=== PATIENT | female | born 1985 | race Caucasian/White ===

== ENCOUNTER 2021-04-02 15:53 | Emergency (ER) | payer OTHER ==
[~2021-04-02] VITALS: Ht 144.8 cm; Wt 47.6 kg
[2021-04-02 16:58] LABS: HEMATOCRIT 44.1 % (37.0-47.0); MCH 31.1 pg (26.0-34.0); MCHC 34.1 g/dL (28.0-37.0); MCV 91.3 fL (80.0-100.0); RBC 4.83 mil/uL (4.20-5.00); RDW 12.6 % (10.5-14.5); WBC 8.3 thou/uL (4.0-11.0)
[2021-04-02 17:02] LABS: CALCIUM 9.2 mg/dL (8.5-10.1); CREATININE 0.9 mg/dL (0.6-1.0)
[2021-04-02 17:08] LABS: ALBUMIN 3.6 g/dL (3.4-5.0); TOTAL BILIRUBIN 0.3 mg/dL (0.2-1.0); TOTAL PROTEIN 7.9 g/dL (6.4-8.2)
[2021-04-02 17:12] LABS: POTASSIUM 3.9 mmol/L (3.5-5.1)
[2021-04-02 17:30] VITALS: BP 123/86
[2021-04-03] MEDS ORDERED: AUROVELA FE PO (15:23)
[2021-04-03] MEDS ORDERED: [UNRECOGNIZED DRUG - OTHER] TOP (15:24)
[2021-04-03] MEDS ORDERED: [UNRECOGNIZED DRUG - OTHER] IV (15:25)
== END 2021-04-02 17:47 | disposition home or self-care (01) ==
LOC: ER 15:53
PROVIDERS: Emergency Medicine
DX: L03.114 Cellulitis of left upper limb (principal)

== ENCOUNTER → 2021-04-03 | Outpatient (CLI) | payer OTHER ==
[~2021-04-03] MED LIST: AUROVELA FE PO; [UNRECOGNIZED DRUG - OTHER] IV; [UNRECOGNIZED DRUG - OTHER] TOP
[2021-04-03 15:15] VITALS: BP 115/78
[2021-04-03 15:55] VITALS: BP 115/78
--- NOTE | 2021-04-03 15:55 | NUR ---
HERE FOR MIDLINE PLACEMENT TODAY FOR LEFT UPPER ARM CELLULITIS S/P COVID INJECTION. PT WAS IN THE ED YESTERDAY AFTERNOON FOR 1ST DOSE OF DAPTOMYCIN. RETURNED TODAY TO GET THE MIDLINE PLACED AND RECEIVE HER 2ND DOSE. MIDLINE PLACED BY VASCULAR ACCESS TEAM NURSE, DAPTO INFUSED WITHOUT INCIDENT. GABE RN WITH [facility], HERE TO DO FULL PATIENT TEACHING FOR HOME INFUSIONS. CANDI, PHARMACIST WITH [facility], CONFIRMED PLAN SO HE CAN SET UP DELIVERY OF MEDS/SUPPLIES. PT APPEARED OVERWHELMED AND A BIT TEARFUL UPON ARRIVAL BUT SEEMED TO HAVE HAD TIME TO GRASP ALL THE TEACHING AND PLAN. OTHER THAN LEFT UPPER ARM BEING RED AND SLIGHTLY SWOLLEN, PT APPEARS WELL. REDNESS HAS GONE DOWN SINCE YESTERDAY EVIDENCED BY THE LINE DRAWN AROUND IT YESTERDAY. DENIES FEVR/CHILLS. HAS BEEN ON A REMICADE BIOSIMILAR FOR HER CROHN'S DISEASE WHICH SHE STATES WILL BE ON HOLD UNTIL SHE IS CLEARED. REVIEWED PLAN WITH PT THEN DISMISSED IN STABLE CONDITION.
--- NOTE | 2021-04-03 17:04 | NUR ---
A #4F BIOFLOW MIDLINE WAS PLACED PER HOSPITAL POLICY. BENIFITS AND RISKS OF A DVT AND INFECTION WERE DISCUSED AND SHE WAS APPREHENSIVE ABOUT LINE PLACEMENT. MOY FOURNIER SPOKE TO HER WELL AND SHE DID VERBALY CONSENT TO PLACEMENT. THE MIDLINE WAS TRIMMED TO 15CM AND ADVANCED WITHOUT DIFFICULTY. THE LINE WAS SECURED AND RELEASED FOR USE
== END ==
LOC: OPONC 14:24
PROVIDERS: ATTEND Specialist
DX: L03.114 Cellulitis of left upper limb (principal)
CPT/HCPCS: 27000; 95000